=== PATIENT | female | born 1995 | race Caucasian/White ===

== ENCOUNTER 2016-06-07 17:34 | Emergency (ER) | payer OTHER ==
[2016-06-07 19:27] VITALS: BP 151/80
[2016-06-07] MEDS ORDERED: Amoxicillin/Clavulanate TAB* 875 MG PO ONE (19:50)
--- NOTE | 2016-06-07 20:05 | UC ---
Throat Pain/Nasal Telly HPI - HPI Summary HPI Summary: HAS BEEN TREATED TWICE FOR STREP THROAT ONCE WITH PCN, ONCE WITH AUGMENTIN. FINISHED TEN DAY COURSE OF ANTIBIOTICS ON 05/31/16. FEELS LIKE SYMPTOMS HAVE RETURNED. MILD FEVER AND SWOLLEN TONSILLS - History of Current Complaint Chief Complaint: UCRespiratory Stated Complaint: SORE THROAT Time Seen by Provider: 06/07/16 19:32 Hx Obtained From: Patient Hx Last Menstrual Period: ended this morning Onset/Duration: Gradual Onset, Lasting Weeks, Still Present Associated Signs & Symptoms: Positive: Dysphagia, Hoarseness, Sinus Discomfort, Fever - Epiglottits Risk Factors Epiglottis Risk Factors: Negative - Allergies/Home Medications Allergies/Adverse Reactions: Allergies Allergy/AdvReac Type Severity Reaction Status Date / Time Benzoyl Peroxide Allergy Swelling Verified 06/07/16 19:27 Of Face,Lips,& Throat Home Medications: Home Medications Amphetamine-Dextroamphetamine [Adderall 10 mg-] 06/07/16 [History] Dayquil 06/07/16 [History] Ibuprofen TAB* [Advil TAB*] 06/07/16 [History] Norethin Acet & Estrad-Fe [Minastrin 24 Fe 1-20 mg-Mcg(24)] 06/07/16 [History] PMH/Surg Hx/FS Hx/Imm Hx Previously Healthy: Yes - Surgical History Surgical History: Yes Surgery Procedure, Year, and Place: Rhinoplasty - Family History Known Family History: Negative: Seizure Disorder - Social History Occupation: Student Lives: Alone Alcohol Use: Occasionally Substance Use Type: None Smoking Status (MU): Never Smoked Tobacco Review of Systems Constitutional: Fever, Chills Skin: Negative Eyes: Negative ENT: Sore Throat Respiratory: Cough Cardiovascular: Negative Gastrointestinal: Negative Genitourinary: Negative Motor: Negative Neurovascular: Negative Musculoskeletal: Negative Neurological: Negative Psychological: Negative All Other Systems Reviewed And Are Negative: Yes Physical Exam Triage Information Reviewed: Yes Appearance: Well-Appearing, No Pain Distress, Well-Nourished Vital Signs: Initial Vital Signs Temp 97.7 F 06/07/16 19:23 Pulse 103 06/07/16 19:23 Resp 12 06/07/16 19:23 BP 151/80 06/07/16 19:23 Pulse Ox 99 06/07/16 19:23 Vital Signs Reviewed: Yes Eye Exam: Normal ENT: Positive: Hearing grossly normal, Pharyngeal erythema, TMs normal, Tonsillar swelling, Tonsillar exudate Dental Exam: Normal Neck exam: Normal Neck: Positive: Supple, Nontender, No Lymphadenopathy Respiratory Exam: Normal Respiratory: Positive: Chest non-tender, Lungs clear, Normal breath sounds, No respiratory distress, No accessory muscle use Cardiovascular Exam: Normal Cardiovascular: Positive: RRR, No Murmur, Pulses Normal Abdominal Exam: Normal Abdomen Description: Positive: Nontender, No Organomegaly Musculoskeletal Exam: Normal Musculoskeletal: Positive: Strength Intact, ROM Intact Neurological Exam: Normal Psychological Exam: Normal Psychological: Positive: Normal Response To Family Skin Exam: Normal Throat Pain/Nasal Course/Dx - Differential Dx/Diagnosis Differential Diagnosis/HQI/PQRI: Pharyngitis, Sinusitis, Tonsillitis, URI Provider Diagnoses: STREP TONSILLITIS Discharge - Discharge Plan Condition: Stable Disposition: HOME Prescriptions: Clindamycin Cap(NF) [Cleocin 300 mg Cap(NF)] 300 mg PO TID #30 cap Patient Education Materials: Strep Throat (ED) Forms: *School Release Referrals: [facility] [Outside] [facility] [Outside] No Primary Care Phys,NOPCP [Primary Care Provider] -
== END 2016-06-07 20:05 | disposition home or self-care (01) ==
LOC: UCEAST 17:34
DX: J03.00 Acute streptococcal tonsillitis, unspecified (principal); R03.0 Elevated blood-pressure reading, without diagnosis of hypertension
CPT/HCPCS: 87651; 99212; A9270-GY; G0463